=== PATIENT | male | born 1995 | race Hispanic/Latino ===

== ENCOUNTER 2020-06-04 05:44 | Emergency (ER) | payer OTHER ==
[2020-06-04 06:31] LABS: Bilirubin Negative (Negative); Blood, Urine Trace (Negative); Clarity Extra Turbid (Clear); Glucose, Urine (Dipstick) Normal (Negative); Ketone, Urine Negative (Negative); Leukocyte 500 Leu/uL (Negative); Nitrite Negative (Negative); Protein, Urine (Dipstick) 30 mg/dL (Neg-Trace); RBC/HPF 0-3 HPF (0-3); Specific Gravity, Urine 1.014 (1.002-1.036); Squamous Epithelial 0-3 HPF (0-3); Urobilinogen Normal mg/dL (Less than 2); WBC/HPF Greater than 50 HPF (0-3)
[2020-06-04 06:32] LABS: Bacteria/HPF 4+ HPF (None Seen)
[2020-06-04] MEDS ORDERED: Ondansetron ODT 8 MG TAB ONE (06:49)
[2020-06-04] MEDS ORDERED: Ciprofloxacin 500 MG TAB ONE (06:49)
== END 2020-06-04 06:58 | disposition home or self-care (01) ==
LOC: ERS 05:44
DX: N39.0 Urinary tract infection, site not specified (principal)
CPT/HCPCS: 81003; 81015; 87077; 87086; 87186; Q0162

== ENCOUNTER 2021-05-17 12:36 | Emergency (ER) | payer OTHER | END 2021-05-17 14:47 | disposition home or self-care (01) | LOC: ERS 12:36 | DX: N39.0 Urinary tract infection, site not specified (principal) | CPT/HCPCS: 99283 ==

== ENCOUNTER 2021-08-06 16:06 | Emergency (ER) | payer OTHER ==
[2021-08-06 17:06] LABS: Bilirubin Negative (Negative); Blood, Urine Negative (Negative); Clarity Turbid (Clear); Glucose, Urine (Dipstick) Normal (Negative); Ketone, Urine Negative (Negative); Leukocyte 500 Leu/uL (Negative); Nitrite Negative (Negative); Protein, Urine (Dipstick) 300 mg/dL (Neg-Trace); RBC/HPF 0-3 HPF (0-3); Specific Gravity, Urine 1.034 (1.002-1.036); Squamous Epithelial 0-3 HPF (0-3); pH, Urine 8.5 (5.0-9.0)
[2021-08-06 17:19] LABS: Bacteria/HPF 2+ HPF (None Seen); Triple Phosphate Crystal 2+ HPF (None Seen)
== END 2021-08-06 19:18 | disposition home or self-care (01) ==
LOC: ERS 16:06
DX: N39.0 Urinary tract infection, site not specified (principal); J45.909 Unspecified asthma, uncomplicated
CPT/HCPCS: 81003; 81015; 87077; 87086; 87186; 99283